=== PATIENT | male | born 1960 | race Caucasian/White ===

== ENCOUNTER → 2020-05-07 10:49 | Outpatient (CLI) | payer OTHER, SELFPAY ==
--- NOTE | ~2020-05-07 | MR_ITS ---
EXAMINATION: MR brain/brain stem wo/w con EXAM DATE: 05/07/2020 11:43 INDICATION: Diplopia. Bilateral eye pain, double vision, blurred vision. TECHNIQUE: Magnetic resonance imaging (MRI) of the brain/brain stem obtained without contrast. Sagit antoine T1, axial diffusion, gradient echo (T2*), T1, T2, FLAIR sequences obtained. Patient was then inj ected with 20 cc intravenous Multihance contrast. Axial and coronal postcontrast T1 weighted sequence s obtained. There is no prior study for comparison. FINDINGS: There are no areas of restricted diffusion to suggest acute infarction. There is no acute hemorrhage seen on the T2*, a hemosiderin sensitive sequence. No intraparenchymal brain mass. The ve ntricles are normal in size. There are no extra-axial collections. Flow voids are seen in the cereb ral arteries on the T2-weighted sequences consistent with their expected patency. The orbits are unr emarkable. Soft tissue is unremarkable. IMPRESSION: 1. Unremarkable brain MRI examination. Reviewed, dictated and finalized at location A.
[2020-05-07 11:20] LABS: Estimated Glomerular Filt Rate > 60
== END ==
PROVIDERS: PCP Internal Medicine; Visit Provider Internal Medicine
DX: H53.2 Diplopia (principal)
CPT/HCPCS: 70553; A9577

== ENCOUNTER 2023-11-17 04:47 | Day surgery (SDC) | payer OTHER, SELFPAY ==
[2023-11-13 15:18] VITALS: BMI 31.6
--- NOTE | 2023-11-16 09:28 | WPDANESEPPF ---
Anes - Initial Pre Proc Eval Procedure: Operation Date: 11/17/23 08:30 Proposed Procedures p Esophagogastroduodenoscopy - Lacho Cárdenas MD Date/Time: 11/16/23 09:28 Surgeon: Lacho Cárdenas MD Pre Op Diagnosis: GERD, Dysphagia Patient Data Age: 63 Gender: M Height: 1.85 m Weight: 109 kg Allergies Allergy/AdvReac Type Severity Reaction Status Date / Time tape Allergy Intermediate Blister Uncoded 11/17/23 07:21 Home Medications Medication Instructions Recorded Confirmed Type fexofenadine 180 mg tablet 180 mg PO DAILY 01/07/19 11/13/23 History (Ruthie Allergy) fluticasone propionate 50 1 spray intranasal DAILY 01/07/19 11/13/23 History mcg/actuation nasal spray,suspension omeprazole 40 mg capsule,delayed 40 mg PO DAILY 01/07/19 11/13/23 History release Patient hx anesthesia problems: none Family hx anesthesia problems: none Results Review: All pre-operative results and documents have been reviewed as part of the pre-operative evaluation. [facility] Past Medical History Medical History (Updated 11/16/23 @ 09:28 by Jevon Iraheta DO) Arthritis Asthma Dysphagia GERD (gastroesophageal reflux disease) Surgical History Surgical History (Updated 10/19/23 @ 14:28 by Rajeev Perdomo) History of left knee replacement History of right knee joint replacement Social History Social History Smoking status: Never smoker Alcohol intake: never Substance use: never Substance use type: does not use Living arrangements: with family Spiritual care concerns: No Anes - Eval Final PreProcedure Day of Procedure 11/16/23 09:28 Patient weight: obese Heart: regular rate and rhythm Lungs: clear to auscultation Airway: Mallampati scale class II Neurological: alert and oriented Last oral intake: >/= 8 hours ASA classification: II Emergent: no Anesthetic plan: proceed Anesthesia type and monitoring: general GIVS and standard monitoring Results Review: All pre-operative results and documents have been reviewed as part of the pre-operative evaluation. Informed Consent: The patient's anesthetic plan and its attendant risks and benefits were discussed with the patient/family/POA. Questions were solicited and answers provided to the satisfaction of the patient/family/POA.
[2023-11-17 07:23] VITALS: BP 129/70; PULSE 70; RESP 20; TEMP 36.2; O2SAT 98
--- NOTE | 2023-11-17 07:27 | PM.IMHP ---
H&P: HPI History of Present Illness Date/Time: 11/17/23 07:27 Chief Complaint: Patient with history of chronic GERD it is on omeprazole 40 mg q.d., is experiencing dysphagia, mainly to solids for the past 2 years. He does not recall having had an EGD. There is no unintended weight loss. Here for EGD to assess dysphagia, for which differential diagnosis includes peptic stricture, malignancy, eosinophilic esophagitis, or motility disorder of the esophagus. Review of Systems Review of Systems: All systems reviewed & are unremarkable except as noted in HPI and below PMFSH Past Medical History Medical History (Updated 11/16/23 @ 09:28 by Jevon Iraheta, ) Arthritis Asthma Dysphagia GERD (gastroesophageal reflux disease) Surgical History Surgical History (Updated 10/19/23 @ 14:28 by Rajeev Perdomo) History of left knee replacement History of right knee joint replacement Social History Social History Smoking status: Never smoker Alcohol intake: never Substance use: never Substance use type: does not use Living arrangements: with family Spiritual care concerns: No Meds Home Medications and Allergies Home Medications Medication Instructions Recorded Confirmed Type fexofenadine 180 mg tablet 180 mg PO DAILY 01/07/19 11/13/23 History (Ruthie Allergy) fluticasone propionate 50 1 spray intranasal DAILY 01/07/19 11/13/23 History mcg/actuation nasal spray,suspension omeprazole 40 mg capsule,delayed 40 mg PO DAILY 01/07/19 11/13/23 History release Allergies Allergy/AdvReac Type Severity Reaction Status Date / Time tape Allergy Intermediate Blister Uncoded 11/17/23 07:21 Vital Signs Vital Signs - 24 hr 11/17/23 07:23 Temperature 97.1 F L Pulse Rate 70 Respiratory Rate 20 Blood Pressure 129/70 Pulse Oximetry 98 Oxygen Delivery Room Air Assessment and Plan Assessment and plan (1) Dysphagia: Code(s): R13.10 - Dysphagia, unspecified Status: Acute Plan As stated above. The patient deemed a good candidate for EGD, will proceed.
[2023-11-17] MEDS: LACTATED RINGERS 1,000 ML 150 ML IV CONT (07:28)
[2023-11-17] MEDS: SIMETHICONE ORAL SUSPENSION 20 MG/0.3 ML 30 ML BOTTLE 0.6 ML IRRIGATION (07:39)
[2023-11-17 08:13] VITALS: BP 125/81; PULSE 73; RESP 19; O2SAT 96
[2023-11-17 08:23] VITALS: BP 127/81; PULSE 62; RESP 16; O2SAT 96
[2023-11-17 08:33] VITALS: BP 129/87; PULSE 70; RESP 19; O2SAT 97
== END 2023-11-17 08:50 | disposition home or self-care (01) ==
PROVIDERS: PCP Internal Medicine; Referring Provider Nurse Practitioner Family; Visit Provider Internal Medicine Gastroenterology
PROC: 0DJ08ZZ Inspection of Upper Intestinal Tract, Via Natural or Artificial Opening Endoscopic (ICD-10-PCS; CPT 43235; principal; 2023-11-17 08:30)
DX: K29.50 Unspecified chronic gastritis without bleeding (principal); K31.7 Polyp of stomach and duodenum; K21.9 Gastro-esophageal reflux disease without esophagitis; E66.9 Obesity, unspecified; Z68.31 Body mass index [BMI] 31.0-31.9, adult
CPT/HCPCS: 43251; 43239; 88305; J2003; J2704; J7120